=== PATIENT | female | born 1985 | race Caucasian/White ===

== ENCOUNTER 2021-12-14 15:48 | Inpatient (IN) | payer OTHER ==
[2021-12-14] MEDS ORDERED: PROMETHAZINE INJ 25 MG/ML AMP IM PRN (16:14)
[2021-12-14] MEDS ORDERED: PENICILLIN 5 MU in NA CHLORIDE 0.9% 100 ML IV ONE ×2 (16:14→17:00)
[2021-12-14] MEDS ORDERED: BUTORPHANOL 1 MG/ML INJ IV PRN (16:14)
[2021-12-14] MEDS ORDERED: MAGNES/ALUMIN/SIMET 30ML UCUP PO PRN (16:14)
[2021-12-14] MEDS ORDERED: METHYLERGONOVINE 0.2MG/ML AMP IM PRN (16:14)
[2021-12-14] MEDS ORDERED: Ringers Lactate 1,000 ML IV PRN (16:14)
[2021-12-14] MEDS ORDERED: CARBOPROST TROME 250 MCG/ML IM PRN (16:14)
[2021-12-14] MEDS ORDERED: CARBOPROST TROME 250 MCG/ML IM ONE (16:52)
[2021-12-14] MEDS ORDERED: LIDOCAINE 1% MPF 30 ML VIAL ONE ×2 (16:52→18:43)
[2021-12-14] MEDS ORDERED: METHYLERGONOVINE 0.2MG/ML AMP IM ONE (16:52)
[2021-12-14] MEDS ORDERED: OXYTOCIN/LR 20 UNIT/1,000 ML BAG IV SCH ×2 (17:00→19:00)
[2021-12-14] MEDS ORDERED: Ringers Lactate 1,000 ML IV SCH (17:00)
[2021-12-14 17:02] LABS: Absolute Lymphocytes (CBC) 1.6 K/uL (0.7-4.9); Hematocrit 33.7 % (36.0-45.0); Lymphocytes % 9.2 % (15.3-44.8); MPV 8.1 fL (7.6-11.3); RBC Red Blood Cell Count 4.38 M/uL (3.86-4.86)
[2021-12-14] MEDS ORDERED: LIDOCAINE 1% MPF 30 ML VIAL SQ ONE (18:36)
[2021-12-14] MEDS ORDERED: MEASLES,MUMPS,RUBELLA VAC 0.5ML SQVAC ONE (18:59)
[2021-12-14] MEDS ORDERED: ACETAMINOPHEN 500 MG TAB PO PRN (18:59)
[2021-12-14] MEDS ORDERED: IBUPROFEN 200 MG TAB PO PRN (18:59)
[2021-12-14] MEDS ORDERED: DIPHENHYDRAMINE 25 MG TAB/CAP PO PRN (18:59)
[2021-12-14] MEDS ORDERED: Oxycodone HCl/Acetaminophen 1 TAB TAB PO PRN ×2 (18:59)
[2021-12-14] MEDS ORDERED: BISACODYL 10 MG RECTAL SUPP RC PRN (18:59)
[2021-12-14] MEDS ORDERED: DOCUSATE NA/SENNA CONC 1 TAB PO PRN (18:59)
[2021-12-14 19:34] VITALS: BMI 26.6
--- NOTE | 2021-12-14 21:42 | PREOPHP ---
Date of Admission: 12/14/2021 History Of Present Illness: This is a 36-year-old 5, one term , second , o ne tubal ectopic, the others miscarriages. Virtually, no care. She says she has been movin g [place] here and [place] and has not had time to see anybody, although she says she was seen h ere in Labor and Delivery a couple of weeks ago and at first said she had an ultrasound performed and then later, she said "no, it wasn't ultrasound, they just listened to the baby." She said she had a n ultrasound performed at the help center 2 or 3 days after she was here and by that estima te, she might be 36 weeks to possibly further. She is a smoker though. Her abdomen appears term siz e. Not very cooperative patient. Family History: Noncontributory. Allergies: NO ALLERGIES. Physical Examination: HEENT: Clear. Pupils equal, round, reactive to light and accommodation. Conjunctivae well perfused . No oral, lingual, or buccal lesions. Chest and Lungs: Basically clear. Breasts: Not examined. Abdomen: Term size. Extremities: Clear without edema, cyanosis, or clubbing. Assessment And Plan: The patient is now about 8 cm, 100% effaced, vertex, -1 station, bulging membra bismark. We had offered the patient penicillin prophylaxis, but she is going so rapidly, I do not think that would be possible to get it done before the baby delivers, but we will give it. We have ordered a drug screen, but the patient does admit to marijuana and other type of drugs. After we get the dr carlin screen, we will give her Stadol at her request. Admit for stabilization and delivery relatively soon . JERSON/EDEL Voice ID: [id number]
[2021-12-14 22:26] LABS: RPR (Rapid Plasma Reagin) NON-REACT (NON-REACT)
[2021-12-14] MEDS ORDERED: MUCINEX DM 12HR.SR TAB PO PRN (22:33)
[2021-12-14] MEDS ORDERED: GUAIFENESIN 600 MG SA TAB PO ONE (22:56)
--- NOTE | 2021-12-15 05:32 | OP ---
Surgeon: Bert Parkinson MD A 36-year-old 5, para 1, 2 miscarriages and an ectopic . Basically, no car e. Said she had been seen here 2 weeks ago for this assessment, was seen a couple days later at [facility]. Ultrasound was done showing no significant problems. Came back into our institut ion today in active labor. Noted to be 5.5 to 6 cm on admission, bulging membranes. Patient progres sed to approximately 8 cm. She was started on penicillin prophylaxis as her beta strep status was un known and she had no allergies noted and requested the penicillin, was given 1 mg of Stadol during th e labor. Second stage of about an hour to an hour and 15 minutes. Baby was persistent occiput poste rior. Meconium was noted at time of delivery. Dr. Arroyo present at the time of delivery. Baby d elivered straight OP, handed over to Dr. Arroyo with thorough suctioning of the nares and oropharyn x and direct visualization with the laryngoscope. Baby doing quite well at this point. Apgars to be signed by Pediatrics. Baby in the 7-pound range. Patient sustained a first-degree laceration to po sterior fourchette, local infiltration and repaired with 2-0 chromic. Schultze delivery of the place nta, which was very large and almost appeared to have marginal abruption, although no blood was noted during the labor. Baby looked good throughout the labor. At the time of delivery, was not stimulat ed initially until meconium could be aspirated from the nares and oropharynx. Final Diagnoses: Term appearing , probably 38 weeks or more. Spontaneous vaginal delivery. Meconium staining. No suspicion of aspiration. No care. Penicillin prophylaxis. Patien t admits to marijuana use prior to admission. Very uncooperative patient during the labor. NBC/MODL Voice ID: [id number] Report ID: [id number]
[2021-12-15] MEDS ORDERED: MUCINEX DM 12HR.SR TAB PO PRN (08:00)
[2021-12-15 12:54] VITALS: TEMP 97.9
[2021-12-15] MEDS ORDERED: MEASLES,MUMPS,RUBELLA VAC 0.5ML SQVAC ONE (16:04)
[2021-12-15 16:29] VITALS: BP 124/70
== END 2021-12-15 16:35 | disposition home or self-care (01) | DRG 806 ==
LOC: L&D 15:48 → 2ND-WC 16:00
PROVIDERS: ADMIT Specialist; ATTEND Specialist
PROC: 10907ZC Drainage of Amniotic Fluid, Therapeutic from Products of Conception, Via Natural or Artificial Opening (ICD-10-PCS; principal; 2021-12-14)
PROC: 10E0XZZ Delivery of Products of Conception, External Approach (ICD-10-PCS; 2021-12-14)
PROC: 0HQ9XZZ Repair Perineum Skin, External Approach (ICD-10-PCS; 2021-12-14)
DX: O77.0 Labor and delivery complicated by meconium in amniotic fluid (principal); O99.324 Drug use complicating childbirth; Z37.0 Single live birth; F12.90 Cannabis use, unspecified, uncomplicated; O70.0 First degree perineal laceration during delivery
CPT/HCPCS: 36415; 82947; 85025; 86592; 86762; 86901; 87340; 88307; 90471; 90707; G0433; J0595; J2210; J2540